=== PATIENT | male | born 1955 | race African-American/Black ===

== ENCOUNTER 2018-07-10 07:35 | Emergency (ER) | payer BC ==
[2018-07-10] MEDS ORDERED: VANCOMYCIN HCL INJ 1000 MG VIAL IV ONE (09:30)
--- NOTE | 2018-07-10 09:35 | ER Document Report ---
ED GI/ - General Chief Complaint: Abscess Stated Complaint: GROIN PAIN Time Seen by Provider: 07/10/18 09:12 Mode of Arrival: Ambulatory Information source: Patient Notes: Patient complains of a cystic-like lesion to the scrotum that he has had developing over the past 2 weeks. Patient denies any fever. Patient denies any urinary symptoms. TRAVEL OUTSIDE OF THE [place] IN LAST 30 DAYS: No - HPI Patient complains to provider of: Other - Scrotal nodule Onset: Other - 2 weeks Timing/Duration: Persistent Quality of pain: No pain Pain Level: Denies Location: Other - Scrotum Associated symptoms: denies: Nausea, Urinary hesitancy, Urinary frequency, Urinary retention, Urinary urgency, Vomiting Exacerbated by: Denies Relieved by: Denies Similar symptoms previously: No Recently seen / treated by doctor: No - Related Data Allergies/Adverse Reactions: No Known Allergies Allergy (Unverified 07/10/18 07:39) Past Medical History - General Information source: Patient - Social History Smoking Status: Never Smoker Chew tobacco use (# tins/day): No Frequency of alcohol use: Social Drug Abuse: None Occupation: None Family History: None Patient has suicidal ideation: No Patient has homicidal ideation: No - Past Medical History Cardiac Medical History: Reports: Hx Hypercholesterolemia, Hx Hypertension Renal/ Medical History: Denies: Hx Peritoneal Dialysis Past Surgical History: Reports: Hx Orthopedic Surgery - Immunizations Hx Diphtheria, Pertussis, Tetanus Vaccination: Yes Review of Systems - Review of Systems Constitutional: No symptoms reported. denies: Fever, Recent illness EENT: No symptoms reported Cardiovascular: No symptoms reported. denies: Chest pain Respiratory: No symptoms reported. denies: Cough, Short of breath Gastrointestinal: No symptoms reported. denies: Abdominal pain, Nausea, Vomiting Genitourinary: No symptoms reported. denies: Dysuria Male Genitourinary: Other - Possible cyst to scrotum Musculoskeletal: No symptoms reported. denies: Back pain Skin: Other - Possible cyst to scrotum Hematologic/Lymphatic: No symptoms reported Neurological/Psychological: No symptoms reported Physical Exam - Vital signs Vitals: Temp Pulse Resp BP Pulse Ox 97.6 F 94 16 152/102 H 96 07/10/18 07:44 07/10/18 07:44 07/10/18 07:44 07/10/18 07:44 07/10/18 07:44 - General General appearance: Appears well, Alert In distress: None - HEENT Head: Normocephalic, Atraumatic Eyes: Normal Conjunctiva: Normal Nasal: Normal Mouth/Lips: Normal Mucous membranes: Normal Neck: Normal, Supple. No: Lymphadenopathy - Respiratory Respiratory status: No respiratory distress Chest status: Nontender Breath sounds: Normal. No: Rales, Rhonchi, Stridor, Wheezing Chest palpation: Normal - Cardiovascular Rhythm: Regular Heart sounds: S1 appreciated, S2 appreciated Murmur: No - Abdominal Inspection: Normal Distension: No distension Bowel sounds: Normal Tenderness: Nontender - Genitourinary Inspection: Other - cystic vs abscess lesion to scrotum, no palpable fluctuance Tenderness: Nontender Scrotum: Other - cystic vs abcess lesion to perineal [place] area - Back Back: Normal, Nontender. No: CVA tenderness - Extremities General upper extremity: Normal inspection, Normal ROM General lower extremity: Normal inspection, Normal ROM - Neurological Neuro grossly intact: Yes Cognition: Normal [place] Coma Scale Eye Opening: Spontaneous [place] Coma Scale Verbal: Oriented [place] Coma Scale Motor: Obeys Commands [place] Coma Scale Total: 15 - Psychological Associated symptoms: Normal affect, Normal mood - Skin Skin Temperature: Warm Skin Moisture: Dry Skin Color: Normal Course - Re-evaluation Re-evalutation: 07/10/18 11:[address] Real who is currently in a surgical case. Message left with the circulating nurse to relay the consult 07/10/18 11:44 Dr. Real in to evaluate patient 07/10/18 11:49 Dr. Real evaluated patient, does not suspect abscess. Suspect cystic lesion although recommends coverage with antibiotics. [facility] - Vital Signs Vital signs: Temp Pulse Resp BP Pulse Ox 98.3 F 89 13 133/91 H 99 07/10/18 12:51 07/10/18 12:51 07/10/18 12:51 07/10/18 12:51 07/10/18 12:51 - Laboratory Result Diagrams: 07/10/18 10:37 07/10/18 10:37 Laboratory results interpreted by me: 07/10/18 07/10/18 07/10/18 09:43 10:37 10:37 WBC 11.4 H RDW 14.2 H Seg Neutrophils % 80.8 H Lymphocytes % 10.0 L Absolute Neutrophils 9.2 H Direct Bilirubin 0.5 H Total Protein 8.6 H Urine Ascorbic Acid 20 H Labs- Entire Visit 07/10/18 07/10/18 07/10/18 09:43 10:37 10:37 WBC 11.4 H RBC 4.68 Hgb 14.3 Hct 43.2 MCV 92 MCH 30.6 MCHC 33.2 RDW 14.2 H Plt Count 290 Seg Neutrophils % 80.8 H Lymphocytes % 10.0 L Monocytes % 7.8 Eosinophils % 1.1 Basophils % 0.3 Absolute Neutrophils 9.2 H Absolute Lymphocytes 1.1 Absolute Monocytes 0.9 Absolute Eosinophils 0.1 Absolute Basophils 0.0 Sodium 139.2 Potassium 4.1 Chloride 101 Carbon Dioxide 30 Anion Gap 8 BUN 10 Creatinine 0.95 Est GFR ( Amer) > 60 Est GFR (Non-Af Amer) > 60 Glucose 97 Calcium 9.1 Total Bilirubin 1.3 Direct Bilirubin 0.5 H Neonat Total Bilirubin Not Reportable Neonat Direct Bilirubin Not Reportable Neonat Indirect Bili Not Reportable AST 23 ALT 27 Alkaline Phosphatase 126 Total Protein 8.6 H Albumin 4.4 Urine Color YELLOW Urine Appearance CLEAR Urine pH 6.0 Ur Specific [place] 1.010 Urine Protein NEGATIVE Urine Glucose (UA) NEGATIVE Urine Ketones NEGATIVE Urine Blood NEGATIVE Urine Nitrite NEGATIVE Urine Bilirubin NEGATIVE Urine Urobilinogen NEGATIVE Ur Leukocyte Esterase NEGATIVE Urine WBC (Auto) 1 Urine RBC (Auto) 0 Urine Mucus (Auto) FEW Urine Ascorbic Acid 20 H - Diagnostic Test Radiology reviewed: Reports reviewed Discharge - Discharge Clinical Impression: Cyst of scrotum Condition: Stable Disposition: HOME, SELF-CARE Instructions: Cephalexin ([facility]), Trimethoprim-Sulfa ([facility]) Additional Instructions: Return immediately for any new or worsening symptoms Followup with your primary care provider, call tomorrow to make a followup appointment Prescriptions: Cephalexin Monohydrate [Keflex 500 mg Capsule] 500 mg PO Q6H 3 Days capsule Cephalexin Monohydrate [Keflex 500 mg Capsule] 500 mg PO Q6H 4 Days capsule Sulfamethoxazole/Trimethoprim [Bactrim Ds Tablet] 1 each PO BID #6 tablet Sulfamethoxazole/Trimethoprim [Bactrim Ds Tablet] 1 each PO BID #14 tablet Referrals: [facility] [Provider Group] - Follow up as needed
[2018-07-10 10:15] LABS: APPEARANCE,URINE CLEAR; BILIRUBIN,URINE NEGATIVE (NEGATIVE); COLOR,URINE YELLOW; GLUCOSE, URINE NEGATIVE (NEGATIVE); KETONES,URINE NEGATIVE (NEGATIVE); LEUKOCYTE ESTERASE,URINE NEGATIVE (NEGATIVE); NITRITE,URINE NEGATIVE (NEGATIVE); PROTEIN,URINE NEGATIVE (NEGATIVE); UROBILINOGEN,URINE NEGATIVE mg/dL (<2.0)
--- NOTE | 2018-07-10 10:52 | RADIOLOGY REPORT (SQ) ---
EXAM DESCRIPTION: U/S SCROTUM W/DOPPLER COMPLETED DATE/TIME: 07/10/2018 10:19 am REASON FOR STUDY: ?abscess to scrotum COMPARISON: None. TECHNIQUE: Static and realtime yang scale imaging of the scrotum and testes. Selected color Doppler and spectral images recorded to document blood flow. LIMITATIONS: None. FINDINGS: RIGHT: TESTICLE: Normal size. Normal echotexture. Normal blood flow. No mass. EPIDIDYMIS: Normal. HYDROCELE OR VARICOCELE: Varicocele. No hydrocele. HERNIA OR EXTRA-TESTICULAR MASS: No. LEFT: TESTICLE: Normal size. Normal echotexture. Normal blood flow. No mass. EPIDIDYMIS: 8 mm cyst in the head of the epididymis. HYDROCELE OR VARICOCELE: No. HERNIA OR EXTRA-TESTICULAR MASS: No. OTHER: In the scrotal skin midline and inferior there is a heterogenous palpable soft tissue area shemar suring 2.6 x 2.9 x 3.2 cm. There is no fluid collection. There is increased vascularity. IMPRESSION: 1. APPROXIMATE 3 CM HETEROGENOUS SOFT TISSUE AREA IN THE INFERIOR SCROTAL SKIN WITH INCREASED VASCULA RITY. THIS COULD REPRESENT AN AREA OF INFLAMMATION AND INFECTION. SOFT TISSUE TUMOR WOULD BE A POSS IBILITY ALTHOUGH LESS LIKELY. NO FLUID COLLECTION TO INDICATE A DRAINABLE ABSCESS. 2. RIGHT SIDE VARICOCELE. SMALL CYST IN THE HEAD OF THE LEFT EPIDIDYMIS. 3. UNREMARKABLE TESTICULAR ULTRASOUND. NO EVIDENCE OF TESTICULAR MASS OR TORSION. TECHNICAL DOCUMENTATION: JOB ID: [id number] [employer]- All Rights Reserved Reading location - IP/workstation name: [email or web address]
[2018-07-10 10:57] LABS: ABSOLUTE EOSINOPHILS # (AUTO) 0.1 10^3/uL (0.0-0.6); ABSOLUTE LYMPHOCYTES (AUTO) 1.1 10^3/uL (0.5-4.7); ABSOLUTE MONOCYTES (AUTO) 0.9 10^3/uL (0.1-1.4); ABSOLUTE NEUT (AUTO) 9.2 10^3/uL (1.7-8.2); BASOPHILS % (AUTO) 0.3 % (0-2); EOSINOPHILS % (AUTO) 1.1 % (0-6); HEMATOCRIT 43.2 % (37.9-51.0); HEMOGLOBIN 14.3 g/dL (13.5-17.0); MEAN CORPUSCULAR HEMOGLOBIN 30.6 pg (27.0-33.4); MEAN CORPUSCULAR HGB CONC 33.2 g/dL (32.0-36.0); MEAN CORPUSCULAR VOLUME 92 fl (80-97); MONOCYTES % (AUTO) 7.8 % (3-13); PLATELET COUNT 290 10^3/uL (150-450); RED BLOOD COUNT 4.68 10^6/uL (4.35-5.55); RED CELL DISTRIBUTION WIDTH 14.2 % (11.5-14.0); SEGMENTED NEUTROPHILS % (AUTO) 80.8 % (42-78); TOTAL CELLS COUNTED % (AUTO) 100 %; WHITE BLOOD COUNT 11.4 10^3/uL (4.0-10.5)
[2018-07-10 11:18] LABS: ALANINE AMINOTRANSFERASE 27 U/L (21-72); ALBUMIN 4.4 g/dL (3.5-5.0); ALKALINE PHOSPHATASE 126 U/L (38-126); ANION GAP 8 (5-19); ASPARTATE AMINO TRANSFERASE 23 U/L (17-59); BILIRUBIN,DIRECT 0.5 mg/dL (0.0-0.4); BILIRUBIN,TOTAL 1.3 mg/dL (0.2-1.3); BLOOD UREA NITROGEN 10 mg/dL (7-20); CALCIUM 9.1 mg/dL (8.4-10.2); CARBON DIOXIDE 30 mmol/L (22-30); CHLORIDE 101 mmol/L (98-107); GLUCOSE 97 mg/dL (75-110); POTASSIUM 4.1 mmol/L (3.6-5.0); SODIUM 139.2 mmol/L (137-145); TOTAL PROTEIN 8.6 g/dL (6.3-8.2)
--- NOTE | 2018-07-10 12:09 | PDOC CONSULTATION ---
Consultation Consult Date: 07/10/18 Consult reason:: Mass scrotal area History of Present Illness Admission Date/PCP: 07/10/18 Patient complains of: mild pains scrotal area History of Present Illness: REZA REIS JR is a 63 year old male who noted a mass at the right lower scrotal area about 2 weeks ago. This was noted to be enlarging and patient went to ED. [facility] but somehow was canceled. Denies fever/chills or significant pains. Past Medical History Cardiac Medical History: Reports: Hypertension Past Surgical History Past Surgical History: Reports: Orthopedic Surgery Social History Smoking Status: Never Smoker Family History Family History: None Parental Family History Reviewed: Yes Children Family History Reviewed: No Sibling(s) Family History Reviewed.: No Medication/Allergy Home Medications: Amox Tr/Potassium Clavulanate [Augmentin 875-125 Tablet] 1 tab PO BID #20 tablet 04/29/15 Acetaminophen with Codeine [Tylenol #3 Tablet] 1 each PO Q4HP PRN #14 tablet Cephalexin Monohydrate [Keflex 500 mg Capsule] 500 mg PO Q6H 3 Days capsule Cephalexin Monohydrate [Keflex 500 mg Capsule] 500 mg PO Q6H 4 Days capsule Sulfamethoxazole/Trimethoprim [Bactrim Ds Tablet] 1 each PO BID #14 tablet 07/10 Sulfamethoxazole/Trimethoprim [Bactrim Ds Tablet] 1 each PO BID #6 tablet Allergies/Adverse Reactions: No Known Allergies Allergy (Unverified 07/10/18 07:39) Review of Systems Constitutional: PRESENT: as per HPI Ears: PRESENT: other - no visual/hearing changes Cardiovascular: PRESENT: other - no chest pains/ cough Gastrointestinal: PRESENT: other - no abdominal pains, N/V Genitourinary: PRESENT: other - no dysuria Integumentary: PRESENT: other - mass in the scrotal area non tender non inflamed Neurological: PRESENT: other - no seizures Hematologic/Lymphatic: PRESENT: other - no easy bruising Physical Exam Vital Signs: Temp Pulse Resp BP Pulse Ox 97.6 F 94 16 152/102 H 96 07/10/18 07:44 07/10/18 07:44 07/10/18 07:44 07/10/18 07:44 07/10/18 07:44 Intake & Output 07/09/18 07/10/18 07/11/18 06:59 06:59 06:59 Weight 95.5 kg General appearance: PRESENT: no acute distress Head exam: PRESENT: atraumatic Eye exam: PRESENT: conjunctiva pink Neck exam: PRESENT: full ROM Respiratory exam: PRESENT: clear to auscultation zhanna Cardiovascular exam: PRESENT: RRR Pulses: PRESENT: normal radial pulses Vascular exam: PRESENT: normal capillary refill GI/Abdominal exam: PRESENT: soft Rectal exam: PRESENT: other - Circumscribed mass about 2.5 cm in diameter, non tender, non inflamed at the right inferior scrotal area. Psychiatric exam: PRESENT: appropriate affect Skin exam: PRESENT: normal color, warm Results Laboratory Results: 07/10/18 10:37 07/10/18 10:37 07/10/18 07/10/18 07/10/18 09:43 10:37 10:37 WBC 11.4 H RBC 4.68 Hgb 14.3 Hct 43.2 MCV 92 MCH 30.6 MCHC 33.2 RDW 14.2 H Plt Count 290 Seg Neutrophils % 80.8 H Lymphocytes % 10.0 L Monocytes % 7.8 Eosinophils % 1.1 Basophils % 0.3 Absolute Neutrophils 9.2 H Absolute Lymphocytes 1.1 Absolute Monocytes 0.9 Absolute Eosinophils 0.1 Absolute Basophils 0.0 Sodium 139.2 Potassium 4.1 Chloride 101 Carbon Dioxide 30 Anion Gap 8 BUN 10 Creatinine 0.95 Est GFR ( Amer) > 60 Est GFR (Non-Af Amer) > 60 Glucose 97 Calcium 9.1 Total Bilirubin 1.3 AST 23 ALT 27 Alkaline Phosphatase 126 Total Protein 8.6 H Albumin 4.4 Urine Color YELLOW Urine Appearance CLEAR Urine pH 6.0 Ur Specific [place] 1.010 Urine Protein NEGATIVE Urine Glucose (UA) NEGATIVE Urine Ketones NEGATIVE Urine Blood NEGATIVE Urine Nitrite NEGATIVE Ur Leukocyte Esterase NEGATIVE Urine WBC (Auto) 1 Urine RBC (Auto) 0 Impressions: Scrotum Ultrasound 07/10/18 09:18 IMPRESSION: 1. APPROXIMATE 3 CM HETEROGENOUS SOFT TISSUE AREA IN THE INFERIOR SCROTAL SKIN WITH INCREASED VASCULARITY. THIS COULD REPRESENT AN AREA OF INFLAMMATION AND INFECTION. SOFT TISSUE TUMOR WOULD BE A POSSIBILITY ALTHOUGH LESS LIKELY. NO FLUID COLLECTION TO INDICATE A DRAINABLE ABSCESS. 2. RIGHT SIDE VARICOCELE. SMALL CYST IN THE HEAD OF THE LEFT EPIDIDYMIS. 3. UNREMARKABLE TESTICULAR ULTRASOUND. NO EVIDENCE OF TESTICULAR MASS OR TORSION. Assessment & Plan - Diagnosis (1) Starting cellulitis Is this a current diagnosis for this admission?: No - Time Time Spent: 30 to 50 Minutes - Plan Summary Plan Summary: OK to start po antibiotics for possible starting cellulitis Follow up appoint [facility] No need for surgical intervention at this time
[2018-07-10 12:53] VITALS: BP 133/91
== END 2018-07-10 13:00 | disposition home or self-care (01) ==
LOC: ER 07:35
DX: L72.9 Follicular cyst of the skin and subcutaneous tissue, unspecified (principal); I10 Essential (primary) hypertension
CPT/HCPCS: 99284; 96365; 36415; 87040; 85025; 80053; 81001; 76870; 93976; J3370